=== PATIENT | female | born 1935 | race Caucasian/White ===

== ENCOUNTER 2016-09-14 19:33 | Emergency (ER) | payer MEDICARE, MEDICAID ==
[~2016-09-14] VITALS: Ht 157.5 cm; Wt 59.0 kg
[~2016-09-14 19:33] MED LIST: DIPH25CA83 PO; IOHEXOL-300 100 ML BOTTLE ONE; LANS30CA10 PO; LISI10TA5 PO; LORA10TA7 PO; SODIUM CHLORIDE 0.9% 10ML VIAL ONE
[2016-09-14] MEDS: SODIUM CHLORIDE 0.9% 1,000 ML IV ONE (21:02)
[2016-09-14 21:12] LABS: CLARITY URINE CLEAR (CLEAR); COLOR URINE YELLOW (YELLOW); GLUCOSE URINE NEGATIVE (NEGATIVE); KETONES URINE 1+ (NEGATIVE); LEUKOCYTE ESTERASE URINE 1+ (NEGATIVE); NITRITE URINE NEGATIVE (NEGATIVE); OCCULT BLOOD URINE 2+ (NEGATIVE); PH URINE 5.5 (4.5-8.0); PROTEIN URINE NEGATIVE (NEGATIVE); SPECIFIC GRAVITY URINE 1.023 (1.005-1.030); UROBILINOGEN URINE 0.2 E.U./dL (0.2-1.0)
[2016-09-14] MEDS: MORPHINE SULFATE 4 MG/ML CPJ (NOT FOR IM USE) IV STA (21:12)
[2016-09-14] MEDS: ONDANSETRON HCL 4MG/2ML VIAL IV STA (21:13)
[2016-09-14 21:35] LABS: BASOPHILS % 0.2 % (0.0-2.0); EOSINOPHILS % 0.5 % (0.0-5.0); HEMATOCRIT. 35.8 % (36.0-48.0); HEMOGLOBIN. 11.9 g/dL (12.0-16.0); LYMPHOCYTES % 15.9 % (20.0-50.0); MEAN CORPUSCULAR HEMOGLOBIN 29.6 pg (28.0-32.0); MEAN CORPUSCULAR VOLUME 89.5 fL (81.0-99.0); MEAN PLATELET VOLUME 7.3 fl (7.4-10.4); MONOCYTES % 6.4 % (2.0-8.0); PLATELET 183 x1000/uL (130-400); RED CELL DISTRIBUTION WIDTH 14.1 % (11.6-14.6)
[2016-09-14 21:44] LABS: CARBON DIOXIDE 25 mEq/L (21-32); CHLORIDE 108 mEq/L (98-107); INR 1.1; PROTHROMBIN TIME 11.6 sec
[2016-09-15 00:59] VITALS: BP 140/69
== END 2016-09-15 01:59 | disposition home or self-care (01) ==
LOC: ER 21:02
DX: R19.7 Diarrhea, unspecified (principal); R10.9 Unspecified abdominal pain; I10 Essential (primary) hypertension; Z88.0 Allergy status to penicillin; Z88.6 Allergy status to analgesic agent
CPT/HCPCS: 36415; 74177; 80053; 81001; 83690; 85025; 85610; 96361; 96374; 96375; 99285; A4216; J2270; J2405; J7030; Q9967

== ENCOUNTER 2018-08-17 22:05 | Inpatient (IN) | payer MEDICARE, MEDICAID ==
[~2018-08-17] VITALS: Ht 157.5 cm; Wt 55.3 kg
[~2018-08-17 22:05] MED LIST changes: -IOHEXOL-300 100 ML BOTTLE ONE; -LANS30CA10 PO; +LANS30CA52 PO; -SODIUM CHLORIDE 0.9% 10ML VIAL ONE
[2018-08-17] MEDS ORDERED: ASPIRIN 81MG TABLET PO ONE (23:15)
[2018-08-18 00:04] LABS: BASOPHILS % 0.6 % (0.0-2.0); EOSINOPHILS % 0.9 % (0.0-5.0); HEMATOCRIT. 35.5 % (36.0-48.0); LYMPHOCYTES % 33.6 % (20.0-50.0); MEAN CORPUSCULAR HEMOGLOBIN 31.4 pg (28.0-32.0); MEAN CORPUSCULAR VOLUME 92.4 fL (81.0-99.0); MEAN PLATELET VOLUME 8.1 fl (7.4-10.4); MONOCYTES % 7.9 % (2.0-8.0); PLATELET 214 x1000/uL (130-400); RED BLOOD CELL COUNT 3.84 mill/uL (4.2-5.4); RED CELL DISTRIBUTION WIDTH 14.2 % (11.6-14.6)
[2018-08-18 00:12] LABS: CHLORIDE 104 mEq/L (98-107)
[2018-08-18] MEDS ORDERED: NITROGLYCERIN 0.4MG TABLET SL SL ONE (00:45)
[2018-08-18 02:25] VITALS: BP 144/54
[2018-08-18] MEDS ORDERED: NITROGLYCERIN 0.4MG TABLET SL SL PRN (04:45)
[2018-08-18] MEDS ORDERED: TRAMADOL 50MG TABLET PO PRN (06:15)
[2018-08-18 08:00] VITALS: BP 144/54
[2018-08-18 08:12] LABS: CLARITY URINE CLEAR (CLEAR); COLOR URINE YELLOW (YELLOW); KETONES URINE NEGATIVE (NEGATIVE); LEUKOCYTE ESTERASE URINE TRACE (NEGATIVE); NITRITE URINE NEGATIVE (NEGATIVE); OCCULT BLOOD URINE NEGATIVE (NEGATIVE); PH URINE 7.5 (4.5-8.0); PROTEIN URINE NEGATIVE (NEGATIVE); SPECIFIC GRAVITY URINE 1.011 (1.005-1.030); UROBILINOGEN URINE 0.2 E.U./dL (0.2-1.0)
[2018-08-18 08:42] LABS: *AMPHETAMINES SCREEN URINE NEGATIVE (NEGATIVE); *BARBITURATES SCREEN URINE NEGATIVE (NEGATIVE); *BENZODIAZEPINES SCREEN URINE NEGATIVE (NEGATIVE)
[2018-08-18 08:43] LABS: *COCAINE SCREEN URINE NEGATIVE (NEGATIVE); CANNABINOID URINE SCREEN NEGATIVE (NEGATIVE); METHADONE URINE SCREEN NEGATIVE (NEGATIVE); OPIATES URINE SCREEN NEGATIVE (NEGATIVE); PHENCYCLIDINE URINE SCREEN NEGATIVE (NEGATIVE)
[2018-08-18] MEDS: ASPIRIN 81MG TABLET PO SCH (09:04)
[2018-08-18] MEDS: ENOXAPARIN 30MG/0.3ML SYR SUBCUT SCH (09:04)
[2018-08-18 09:45] LABS: BASOPHILS % 0.5 % (0.0-2.0); EOSINOPHILS % 0.9 % (0.0-5.0); HEMATOCRIT. 36.7 % (36.0-48.0); HEMOGLOBIN. 12.4 g/dL (12.0-16.0); LYMPHOCYTES % 23.9 % (20.0-50.0); MEAN CORPUSCULAR HEMOGLOBIN 31.1 pg (28.0-32.0); MEAN CORPUSCULAR VOLUME 92.2 fL (81.0-99.0); NEUTROPHILS % 68.7 % (40.0-76.0); PLATELET 216 x1000/uL (130-400); RED BLOOD CELL COUNT 3.98 mill/uL (4.2-5.4); RED CELL DISTRIBUTION WIDTH 14.2 % (11.6-14.6)
[2018-08-18 09:56] LABS: CHLORIDE 108 mEq/L (98-107)
[2018-08-18 10:03] LABS: CREATINE KINASE 114 IU/L (26-192)
[2018-08-18 10:04] LABS: CREATINE KINASE MB FRACTION < 1.0 ng/mL (0.5-3.6)
[2018-08-18 16:00] VITALS: BP 146/55
[2018-08-18 16:37] LABS: CREATINE KINASE 102 IU/L (26-192)
[2018-08-18 16:38] LABS: CREATINE KINASE MB FRACTION < 1.0 ng/mL (0.5-3.6)
[2018-08-18] MEDS: LORATADINE 10MG TABLET PO SCH (17:48)
[2018-08-18] MEDS: LISINOPRIL 10MG TABLET PO SCH (17:48)
[2018-08-18] MEDS: PANTOPRAZOLE 40MG DR TABLET PO SCH (17:48)
[2018-08-18 19:50] VITALS: BP 129/48
[2018-08-19] VITALS: BP 141/56
[2018-08-19 04:00] VITALS: BP 145/52
[2018-08-19 07:05] LABS: BASOPHILS % 0.5 % (0.0-2.0); EOSINOPHILS % 1.2 % (0.0-5.0); HEMATOCRIT. 34.8 % (36.0-48.0); HEMOGLOBIN. 11.7 g/dL (12.0-16.0); LYMPHOCYTES % 31.7 % (20.0-50.0); MEAN CORPUSCULAR HEMOGLOBIN 31.2 pg (28.0-32.0); MEAN CORPUSCULAR VOLUME 92.6 fL (81.0-99.0); MEAN PLATELET VOLUME 8.1 fl (7.4-10.4); MONOCYTES % 10.1 % (2.0-8.0); NEUTROPHILS % 56.5 % (40.0-76.0); PLATELET 219 x1000/uL (130-400); RED BLOOD CELL COUNT 3.76 mill/uL (4.2-5.4); RED CELL DISTRIBUTION WIDTH 14.1 % (11.6-14.6)
[2018-08-19 07:38] VITALS: BP 127/58
[2018-08-19] MEDS: PANTOPRAZOLE 40MG DR TABLET PO SCH (10:37)
[2018-08-19] MEDS: ASPIRIN 81MG TABLET PO SCH (10:37)
[2018-08-19] MEDS: LISINOPRIL 10MG TABLET PO SCH (10:38)
[2018-08-19] MEDS: LORATADINE 10MG TABLET PO SCH (10:38)
[2018-08-19] MEDS: ENOXAPARIN 30MG/0.3ML SYR SUBCUT SCH (10:39)
[2018-08-19 12:00] VITALS: BP 122/55
[2018-08-19 16:00] VITALS: BP 120/74
[2018-08-19] MEDS ORDERED: LORAZEPAM 0.5MG TABLET PO PRN (16:00)
[2018-08-19] MEDS ORDERED: HYDROCODONE/ACETAMINOPHEN 5/325MG TABLET PO PRN (16:00)
[2018-08-19] MEDS ORDERED: DOCUSATE SODIUM 100MG CAPSULE PO PRN (16:00)
[2018-08-19] MEDS ORDERED: ACETAMINOPHEN 325MG TABLET PO PRN (16:00)
[2018-08-19] MEDS ORDERED: IPRATROPIUM/ALBUTEROL 0.5-3(2.5)MG/3ML NEB INH PRN (16:00)
[2018-08-19] MEDS ORDERED: ONDANSETRON HCL 4MG/2ML INJ IV PRN (16:00)
[2018-08-19] MEDS ORDERED: CLONIDINE 0.1MG TABLET PO PRN (16:00)
[2018-08-19] MEDS ORDERED: ASPI-1160 PO (17:34)
[2018-08-19 18:44] VITALS: BP 125/72
[2018-08-20] MEDS ORDERED: FAMOTIDINE 20MG TABLET PO SCH (09:00)
== END 2018-08-19 19:14 | disposition home or self-care (01) | DRG 206 ==
LOC: ER 22:05 → 7WST 08-18 01:20 → ENRESERV 08-18 01:48
PROVIDERS: ADMIT Internal Medicine; ATTEND Internal Medicine
DX: M94.0 Chondrocostal junction syndrome [Tietze] (principal); I08.1 Rheumatic disorders of both mitral and tricuspid valves; I10 Essential (primary) hypertension; I25.10 Atherosclerotic heart disease of native coronary artery without angina pectoris; I27.20 Pulmonary hypertension, unspecified; I49.3 Ventricular premature depolarization; J44.9 Chronic obstructive pulmonary disease, unspecified; K44.9 Diaphragmatic hernia without obstruction or gangrene; Z95.1 Presence of aortocoronary bypass graft; Z95.2 Presence of prosthetic heart valve; Z88.0 Allergy status to penicillin; Z88.8 Allergy status to other drugs, medicaments and biological substances; Z79.899 Other long term (current) drug therapy
CPT/HCPCS: 36415; 71045; 80048; 80061; 80305; 82550; 82553; 83036; 83735; 83880; 84443; 84484; 85379; 93005; 93970; 99285; J1650